=== PATIENT | female | born 1990 | race Caucasian/White ===

== ENCOUNTER 2018-03-03 23:22 | Emergency (ER) | END 2018-03-04 00:05 | disposition home or self-care (01) ==

== ENCOUNTER 2018-10-29 08:27 | Inpatient (IN) | payer SELFPAY ==
[~2018-10-29] VITALS: Ht 160 cm; Wt 46.5 kg
[~2018-10-29 08:27] MED LIST: MUPI22OI2 TOP
[2018-10-29] MEDS ORDERED: ONDANSETRON 4 MG INJ IV STA (08:51)
[2018-10-29] MEDS ORDERED: SOD CHLORIDE 0.9% 1,000 ML IV STA (08:51)
[2018-10-29] MEDS ORDERED: KETOROLAC 30 MG INJ IV STA (08:51)
[2018-10-29] MEDS ORDERED: SOD CHLORIDE 0.9% 100 ML ONE (10:38)
[2018-10-29] MEDS ORDERED: IOHEXOL 300MG/ML 150 ML BTL ONE (10:38)
[2018-10-29] MEDS ORDERED: morphine 4 MG/ML VIAL IV STA (11:36)
[2018-10-29] MEDS ORDERED: ACETAMINOPHEN 325 MG TAB PO PRN ×2 (12:30)
[2018-10-29] MEDS ORDERED: NACL 0.9% 3 ML SYG IV SCH (12:30)
[2018-10-29] MEDS ORDERED: ONDANSETRON 4 MG INJ IV PRN ×2 (12:30)
--- NOTE | 2018-10-29 12:33 | ERD ---
ER Documentation Chief Complaint Chief Complaint Complains of abdominal pain since last night HPI 28-year-old female presenting with abdominal pain that started last night. Pain came on suddenly. It is worse with walking patient has pain with laying down. Denies any vomiting but does feel little dizzy. Denies any vaginal bleeding. No dysuria. No back pain. No fevers. Has not taken medication today for pain but took Advil yesterday. Denies medical problems. NKDA. Surgical history denies. Social history smokes socially but denies drug use. ROS All systems reviewed and are negative except as per history of present illness. Medications Home Meds Active Scripts Mupirocin* (Bactroban*) 2% -22 Gram Oint...g., 1 APPLIC TOP TID, #1 TUB SITE OF APPLICATION: Prov:NATALIE PAYNE PA-C 03/03/18 Allergies Allergies: Coded Allergies: No Known Allergy (Unverified , 03/04/18) PMhx/Soc Medical and Surgical Hx: pt denies Medical Hx, pt denies Surgical Hx Hx Alcohol Use: Yes (OCCASSIONAL) Hx Substance Use: No Hx Tobacco Use: No Smoking Status: Never smoker FmHx Family History: No diabetes, No coronary disease, No other Physical Exam Vitals Vital Signs Date Temp Pulse Resp B/P (MAP) Pulse Ox O2 O2 Flow FiO2 Time Delivery Rate 10/29/18 93 20 126/71 100 08:35 (89) Physical Exam GENERAL: The patient is well-appearing, well-nourished, in no acute distress HEENT: Atraumatic. Conjunctivae are pink. Pupils equal, round, and reactive to light. There is no scleral icterus. Tympanic membranes clear bilaterally. Oropharynx clear. NECK: C-spine is soft and supple. There is no meningismus. There is no cervical lymphadenopathy. CHEST: Clear to auscultation bilaterally. There are no rales, wheezes or rhonchi. HEART: Regular rate and rhythm. No murmurs, clicks, rubs or gallops. ABDOMEN: Normal active bowel sounds. No distention. No organomegaly. Tender to palpation diffusely over the abdomen with no rigidity. Result Diagram: 10/29/1890110/29/18 09 Results 24 hrs Laboratory Tests Test 10/29/18 09:02 10/29/18 09:11 White Blood Count 15.6 10^3/ul Red Blood Count 4.27 10^6/ul Hemoglobin 12.8 g/dl Hematocrit 38.2 % Mean Corpuscular Volume 89.5 fl Mean Corpuscular Hemoglobin 30.0 pg Mean Corpuscular Hemoglobin Concent 33.5 g/dl Red Cell Distribution Width 12.4 % Platelet Count 332 10^3/UL Mean Platelet Volume 9.9 fl Immature Granulocytes % 0.700 % Neutrophils % 84.6 % Lymphocytes % 9.0 % Monocytes % 5.4 % Eosinophils % 0.0 % Basophils % 0.3 % Nucleated Red Blood Cells % 0.0 /100WBC Immature Granulocytes # 0.110 10^3/ul Neutrophils # 13.2 10^3/ul Lymphocytes # 1.4 10^3/ul Monocytes # 0.9 10^3/ul Eosinophils # 0.0 10^3/ul Basophils # 0.1 10^3/ul Nucleated Red Blood Cells # 0.0 10^3/ul Urine Color YELLOW Urine Clarity SLIGHTLY CLOUDY Urine pH 6.0 Urine Specific [place] 1.018 Urine Ketones 1+ mg/dL Urine Nitrite NEGATIVE mg/dL Urine Bilirubin NEGATIVE mg/dL Urine Urobilinogen NEGATIVE mg/dL Urine Leukocyte Esterase NEGATIVE Audrey/ul Urine Microscopic RBC 1 /HPF Urine Microscopic WBC 1 /HPF Urine Squamous Epithelial Cells FEW /HPF Urine Mucus MANY /HPF Urine Hemoglobin NEGATIVE mg/dL Urine Glucose NEGATIVE mg/dL Urine Total Protein NEGATIVE mg/dl Sodium Level 141 mmol/L Potassium Level 4.1 mmol/L Chloride Level 105 mmol/L Carbon Dioxide Level 24 mmol/L Anion Gap 12 Blood Urea Nitrogen 14 mg/dl Creatinine 0.67 mg/dl Est Glomerular Filtrat Rate mL/min > 60 mL/min Glucose Level 118 mg/dl Calcium Level 9.4 mg/dl Total Bilirubin 0.9 mg/dl Direct Bilirubin 0.00 mg/dl Indirect Bilirubin 0.9 mg/dl Aspartate Amino Transf (AST/SGOT) 23 IU/L Alanine Aminotransferase (ALT/SGPT) 21 IU/L Alkaline Phosphatase 84 IU/L Total Protein 7.8 g/dl Albumin 4.7 g/dl Globulin 3.10 g/dl Albumin/Globulin Ratio 1.51 Lipase 66 U/L POC Beta HCG, Qualitative NEGATIVE Current Medications Medications Dose Sig/Dereje Start Time Status Last (Trade) Ordered Route PRN Stop Time Admin Dose Reason Admin Sodium 1,000 ml @ Q1H STAT 10/29/18 DC 10/29/18 Chloride 1,000 mls/hr IV 08:51 10/29/18 09:21 09:50 Ondansetron 4 mg ONCE STAT 10/29/18 DC 10/29/18 HCl (Zofran IV 08:51 10/29/18 09:21 Inj) 08:53 Ketorolac 30 mg ONCE STAT 10/29/18 DC 10/29/18 Tromethamine IV 08:51 10/29/18 09:21 (Toradol) 08:53 IV Flush 10 ml STK-MED 10/29/18 DC 10/29/18 (NS 10 ml) ONCE .ROUTE 10:38 10/29/18 10:47 10:39 Sodium 100 ml @ ud STK-MED 10/29/18 DC 10/29/18 Chloride ONCE .ROUTE 10:38 10/29/18 10:48 10:39 Iohexol 150 ml STK-MED 10/29/18 DC 10/29/18 (Omnipaque ONCE .ROUTE 10:38 10/29/18 10:47 300mg/ ml) 10:39 Morphine 4 mg ONCE STAT 10/29/18 DC 10/29/18 Sulfate IV 11:36 10/29/18 11:49 (morphine) 11:37 Procedures/MDM DIAGNOSTIC IMAGING REPORT Patient: WILVER WILLETT : 1990 Age: 28 Sex: F MR #: [id number] DOS: 10/29/18 0851 Ordering MD: TIFFANIE ZAVALA PA-C Location: [facility] Room/Bed: PROCEDURE: CT ABDOMEN AND PELVIS WITH IV CONTRAST. CLINICAL INDICATION: Abdominal pain TECHNIQUE: CT scan of the abdomen and pelvis with contrast was performed on a multidetector high-resolution CT scanner following the use of IV contrast. 90 cc Omnipaque-300 was administered. Coronal and sagittal reformatted images were ob tained from the axial source images. Images were reviewed on a high-resolution PACS workstation. The total exam CTDI equals 6.6 mGy and the total exam DLP equals 306 mGy-cm. One or more of the following dose reduction techniques were used: Automated exposure control. Adjustment of the mA and/or kV according to patient size. Use of iterative reconstruction technique. DICOM images are available. COMPARISON: Ultrasound pelvis dated October 29, 2018. FINDINGS: CT abdomen: The lung bases are clear. The heart size is within normal limits. There is no significant pericardial effusion. Hepatic morphology is within normal limits. No gross contour deforming masses. The gallbladder is within normal limits. No evidence of intrahepatic or extrahepatic biliary dilatation. The spleen is unremarkable. The pancreas appears to be enlarged. Mild upper abdominal complex ascites is noted. Both adrenal glands are within normal limits. Both kidneys are in anatomic position. No evidence of obstruction or hydronephrosis. The visualized GI tract demonstrates mild thickening of the rivera of the stomach. No obstruction. Stool filled loops large bowel suggestive of constipation. The appendix is within normal limits. The aorta is unremarkable. There is no significant retroperitoneal lymphadenopathy. CT pelvis: Large amount of fluid is noted within pelvis , containing hyperdense material, consistent with hemoperitoneum. There are bilateral cystic adnexa, measuring 3.7 cm on the right and 4.0 cm on the left. Fluid is noted within the endometrial canal. No significant pelvic lymphadenopathy. The normalin limits. IMPRESSION: 1. LARGE AMOUNT OF FREE FLUID WITHIN THE PELVIS, CONTAINING HYPERDENSE MATERIAL, CONSISTENT WITH HEMOPERITONEUM. THERE IS A MILD AMOUNT OF UPPER ABDOMINAL HEMOPERITONEUM WELL. 2. Bilateral cystic adnexa, measuring 3.8 cm on the right and 4.0 cm on the left. Hemoperitoneum may be secondary to a ruptured hemorrhagic cyst in the absence of trauma. 3. The pancreas appears to be mildly enlarged. Although findings can be within normal limits, recommend correlation with amylase and lipase levels to exclude the possibility of pancreatitis. 4. No gross evidence of bowel obstruction. Stool filled loops of large bowel suggestive of constipation. No evidence of free air. DIAGNOSTIC IMAGING REPORT Patient: WILVER WILLETT : 1990 Age: 28 Sex: F MR #: [id number] DOS: 10/29/18 0000 Ordering MD: TIFFANIE ZAVALA PA-C Location: [facility] Room/Bed: PROCEDURE: US Pelvis. CLINICAL INDICATION: pelvic pain TECHNIQUE: Multiple sonographic images of the pelvis were obtained utilizing transabdominal and endovaginal technique. The images were reviewed on a PACS workstation. COMPARISON: None. FINDINGS: The uterus is normal in size with a normal appearance of the myometrium. The uterus measures 8.4 x 4.2 x 4.2 cm. The endometrial stripe is homogeneous in appearance and has the thickness of 14 mm. Normal venous Doppler flow is identified in both ovaries. The right ovary measures 5.1 x 4.8 x 4.2 cm. There is a 3.5 cm simple cyst. The left ovary measures 5.5 x 4.5 x 4.7 cm. There is a 4.6 cm simple cyst. There is adjacent free fluid in the left adnexa. No free fluid is present within the pelvis. There is a moderate amount of free fluid in the pelvis. RPTAT: AA IMPRESSION: Enlarged ovaries with bilateral simple cysts. Moderate amount of free fluid in the pelvis and left adnexa. MDM: 28-year-old female presenting with abdominal pain since last night. Patient has findings consistent with hemoperitoneum and patient will be admitted for observation. Dr. Mejia will admit and consult. Patient will have serial CBCs drawn to ensure that hemoglobin remained stable. If there is complication. Patient will have a laparoscopy If symptoms persist or worsen. Patient will be admitted and is stable at the time of admission. ELHAM ZAVALA PA-C Oct 29, 2018 12:33
--- NOTE | 2018-10-29 12:37 | QN ---
Documentation Comment [place] [employer] Note and consults Thank you for consulting with nuclear licensing engineer team, 28 yo female complains of sudden onset Of generalized abdominal pain since last night with no other associated symptoms Hb 12 [place] 90 HCG neg Ultrasound and CT reviewed Moderate FF in abdomen and pelvis,Small bilateral ovarian cysts PMH Denies PSH Denies Allegies NKDA PE VS stable Gen NAD Abd soft Generalized tenderness more pronounced on the lower side Genitalia No blood at perineum Dx of possible ruptured ovarian cyst discussed with the patient ,A diagnostic laparoscopy vs Monitoring and Observation discussed with the patient patient understands the risks and benefits of each.She declines the surgery at this time and requests the observation Hb every 4-6 hrs If pain subsides or Hb is stable,she can be discharged with precautions If Hb significantly drops ,she will be taken to OR She needs to stay NPO Thanks CAMDEN CELAYA M.D. Oct 29, 2018 12:37
[2018-10-29] MEDS ORDERED: morphine 2 MG INJ IV PRN (13:30)
[2018-10-29 15:15] VITALS: BP 119/66; PULSE 70; RESP 18
[2018-10-29] MEDS: DEXTROSE 5%-0.45% NACL 1,000 ML IV SCH (15:46)
[2018-10-29 15:47] VITALS: Ht 160 cm; Wt 46.5 kg
--- NOTE | 2018-10-29 17:38 | HP ---
Date/Time of Note Date/Time of Note DATE: 10/29/18 TIME: 17:27 Assessment/Plan VTE Prophylaxis SCD applied (from Nsg): Yes Pharmacological prophylaxis: NA/contraindicated Pharm contraindication: bleeding Lines/Catheters IV Catheter Type (from Nrsg): Peripheral IV Urinary Cath still in place: No Assessment/Plan Assessment/Plan 1. Acute rupture ovarian cyst with hemoperitoneum - Oil Lease Operator consultation appreciated and discussed plan of care with patient. Would like conservative treatment at this time but if hgb drops significantly or experiencing worsening pain, will need surgical intervention. Will need to keep NPO for now and continue on IVF - Pain control - monitor H/H - CT results noted 2. Leukocytosis - most likely reactive 3. Diet - keep NPO for now in case surgical intervention needed 4. DVT ppx - SCD 5. Disposition - Admit to Med/Surg for monitoring of H/H and abdominal pain Result Diagram: 10/29/18 1625 10/29/18 0902 Results 24hrs Laboratory Tests Test 10/29/18 09:02 10/29/18 09:11 10/29/18 16:25 White Blood Count 15.6 H Red Blood Count 4.27 Hemoglobin 12.8 9.5 #L Hematocrit 38.2 28.3 #L Mean Corpuscular Volume 89.5 Mean Corpuscular Hemoglobin 30.0 Mean Corpuscular 33.5 Hemoglobin Concent Red Cell Distribution Width 12.4 Platelet Count 332 Mean Platelet Volume 9.9 Immature Granulocytes % 0.700 H Neutrophils % 84.6 H Lymphocytes % 9.0 L Monocytes % 5.4 Eosinophils % 0.0 Basophils % 0.3 Nucleated Red Blood Cells % 0.0 Immature Granulocytes # 0.110 H Neutrophils # 13.2 H Lymphocytes # 1.4 Monocytes # 0.9 Eosinophils # 0.0 Basophils # 0.1 Nucleated Red Blood Cells # 0.0 Urine Color YELLOW Urine Clarity SLIGHTLY CLOUDY A Urine pH 6.0 Urine Specific [place] 1.018 Urine Ketones 1+ H Urine Nitrite NEGATIVE Urine Bilirubin NEGATIVE Urine Urobilinogen NEGATIVE Urine Leukocyte Esterase NEGATIVE Urine Microscopic RBC 1 Urine Microscopic WBC 1 Urine Squamous Epithelial Cells FEW Urine Mucus MANY A Urine Hemoglobin NEGATIVE Urine Glucose NEGATIVE Urine Total Protein NEGATIVE Sodium Level 141 Potassium Level 4.1 Chloride Level 105 Carbon Dioxide Level 24 Anion Gap 12 Blood Urea Nitrogen 14 Creatinine 0.67 Est Glomerular Filtrat > 60 Rate mL/min Glucose Level 118 Calcium Level 9.4 Total Bilirubin 0.9 Direct Bilirubin 0.00 Indirect Bilirubin 0.9 Aspartate Amino 23 Transf (AST/SGOT) Alanine 21 Aminotransferase (ALT/SGPT) Alkaline Phosphatase 84 Total Protein 7.8 Albumin 4.7 Globulin 3.10 Albumin/Globulin Ratio 1.51 Lipase 66 POC Beta HCG, Qualitative NEGATIVE HPI/ROS Admit Date/Time Admit Date/Time Oct 29, 2018 at 12:29 Hx of Present Illness 28 yo F with no significant PMH presents for worsening abdominal pain since last night. Patient states she had a sudden onset of severe right pubic pain with associated chills. Patient denies any nausea, vomiting, chest pain, shortness of breath, vaginal bleeding, constipation, or diarrhea. She admits to stopping her BC recently. No previous history of pelvic pain. In ED CT scan abd/pelvis revealed hemoperitoneum consistent with ovarian cyst rupture with presences of cysts bilaterally. She was evaluated by Oil Lease Operator and opted for conservative management at this time. ROS All 12 systems reviewed and pertinent positives as per HPI. All others n egative. Constitutional: chills; No nausea Eyes: No discharge ENT: No congestion Respiratory: No cough, No shortness of breath, No sputum Cardiovascular: No chest pain, No edema, No lightheadedness, No palpitations Gastrointestinal: No pain, No constipation, No diarrhea, No nausea Genitourinary: other (right pelvic pain); No bleeding, No discharge, No flank pain Musculoskeletal: No restricted range of motion Skin: No bruising, No laceration, No rash Neurologic: No confusion, No focal-weakness, No syncope Endocrine: no complaints Lymphatic: no complaints Psychological: nl mood/affect Immunologic: no complaints PMH/Family/Social Past Medical History Medical History: no pertinent history Medications Current Medications Dextrose/Sodium Chloride 1,000 ml @ 75 mls/hr [id number] IV Last administered on 10/29/18at 15:46; Admin Dose 75 MLS/HR; Start 10/29/18 at 12:29 IV Flush (NS 3 ml) 3 ml PER PROTOCOL IV ; Start 10/29/18 at 12:30 Ondansetron HCl (Zofran Inj) 4 mg Q6H PRN IV NAUSEA/VOMITING; Start 10/29/18 at 12:30 Acetaminophen (Tylenol Tab) 650 mg Q6H PRN PO .PAIN 1-3 OR TEMP; Start 10/29/18 at 12:30 Acetaminophen/ Hydrocodone Bitart ([place] (5/325)) 1 tab Q6H PRN PO .MOD PAIN 4- 6; Start 10/29/18 at 12:30 Famotidine (Pepcid Iv) 20 mg Q12 IV ; Start 10/29/18 at 21:00 Morphine Sulfate (morphine) 2 mg Q4H PRN IV SEVERE PAIN LEVEL 7-10; Start 10/29/18 at 13:30 Coded Allergies: No Known Allergy (Unverified , 03/04/18) Past Surgical History Past Surgical Hx: no surgical history Family History Significant Family History: no pertinent family hx Social History Alcohol Use: none Smoking Status: Never smoker Drug Use: none Exam/Review of Systems Vital Signs Vitals Vital Signs Date Temp Pulse Resp B/P (MAP) Pulse Ox O2 O2 Flow FiO2 Time Delivery Rate 10/29/18 98.1 70 18 119/66 100 Room Air 15:15 (83) Exam Exam General: Patient is laying in bed and answers questions appropriately HEENT: NC/AT. EOMI, pupils reactive to light Neck: Supple, nontender, midline Lungs: clear to auscultation bilaterally. no wheezing or rhonchi CVS: S1, S2, regular rate and rhythm, no obvious murmurs Gregg: soft, tender left pubic area, nondistended, no guarding, bowel sounds heard. Neurological: Moves all extremities spontaneously Skin: No new skin lesions Additional Comments No home medications Imaging: PROCEDURE: CT ABDOMEN AND PELVIS WITH IV CONTRAST. CLINICAL INDICATION: Abdominal pain TECHNIQUE: CT scan of the abdomen and pelvis with contrast was performed on a multidetector high-resolution CT scanner following the use of IV contrast. 90 cc Omnipaque-300 was administered. Coronal and sagittal reformatted images were obtained from the axial source images. Images were reviewed on a high-resolution PACS workstation. The total exam CTDI equals 6.6 mGy and the total exam DLP equals 306 mGy-cm. One or more of the following dose reduction techniques were used: Automated exposure control. Adjustment of the mA and/or kV according to patient size. Use of iterative reconstruction technique. DICOM images are available. COMPARISON: Ultrasound pelvis dated October 29, 2018. FINDINGS: CT abdomen: The lung bases are clear. The heart size is within normal limits. There is no significant pericardial effusion. Hepatic morphology is within normal limits. No gross contour deforming masses. The gallbladder is within normal limits. No evidence of intrahepatic or extrahepatic biliary dilatation. The spleen is unremarkable. The pancreas appears to be enlarged. Mild upper abdominal complex ascites is noted. Both adrenal glands are within normal limits. Both kidneys are in anatomic position. No evidence of obstruction or hydron ephrosis. The visualized GI tract demonstrates mild thickening of the rivera of the stomach. No obstruction. Stool filled loops large bowel suggestive of constipation. The appendix is within normal limits. The aorta is unremarkable. There is no significant retroperitoneal lymphadenopathy. CT pelvis: Large amount of fluid is noted within pelvis , containing hyperdense material, consistent with hemoperitoneum. There are bilateral cystic adnexa, measuring 3.7 cm on the right and 4.0 cm on the left. Fluid is noted within the endometrial canal. No significant pelvic lymphadenopathy. The normalin limits. IMPRESSION: 1. LARGE AMOUNT OF FREE FLUID WITHIN THE PELVIS, CONTAINING HYPERDENSE MATERIAL, CONSISTENT WITH HEMOPERITONEUM. THERE IS A MILD AMOUNT OF UPPER ABDOMINAL HEMOPERITONEUM WELL. 2. Bilateral cystic adnexa, measuring 3.8 cm on the right and 4.0 cm on the left. Hemoperitoneum may be secondary to a ruptured hemorrhagic cyst in the absence of trauma. 3. The pancreas appears to be mildly enlarged. Although findings can be within normal limits, recommend correlation with amylase and lipase levels to exclude the possibility of pancreatitis. 4. No gross evidence of bowel obstruction. Stool filled loops of large bowel suggestive of constipation. No evidence of free air. RPTAT: AAPP Physician Marina Date Time Electronically viewed and signed by Physician Marina on 10/29/2018 11:28 PROCEDURE: US Pelvis. CLINICAL INDICATION: pelvic pain TECHNIQUE: Multiple sonographic images of the pelvis were obtained utilizing transabdominal and endovaginal technique. The images were reviewed on a PACS workstation. COMPARISON: None. FINDINGS: The uterus is normal in size with a normal appearance of the myometrium. The uterus measures 8.4 x 4.2 x 4.2 cm. The endometrial stripe is homogeneous in appearance and has the thickness of 14 mm. Normal venous Doppler flow is identified in both ovaries. The right ovary measures 5.1 x 4.8 x 4.2 cm. There is a 3.5 cm simple cyst. The left ovary measures 5.5 x 4.5 x 4.7 cm. There is a 4.6 cm simple cyst. There is adjacent free fluid in the left adnexa. No free fluid is present within the pelvis. There is a moderate amount of free fluid in the pelvis. RPTAT: AA IMPRESSION: Enlarged ovaries with bilateral simple cysts. Moderate amount of free fluid in the pelvis and left adnexa. .Dany Estrada MD, MD Date Time Electronically viewed and signed by .Dany Estrada MD, on 10/29/2018 10:29 SANDHYA MAHARAJ MD Oct 29, 2018 17:38
--- NOTE | 2018-10-29 19:00 | QN ---
Documentation Comment The Hb is checked 9.5 VS stable As this is the end of my call,patidayannayt is signed out to [employer] laborist , and she will evaluate and follow up on the patient CAMDEN CELAYA M.D. Oct 29, 2018 19:00
[2018-10-29] MEDS: HYDROCODONE/APAP (5/325) TAB PO PRN (19:33)
[2018-10-29 20:00] VITALS: BP 118/55; PULSE 67
[2018-10-29] MEDS: FAMOTIDINE 20 MG INJ IV SCH (21:53)
[2018-10-30] VITALS (17 sets, daily range): BP systolic 96–123; BP diastolic 44–70; PULSE 64–106; RESP 12–20
[2018-10-30] MEDS: DEXTROSE 5%-0.45% NACL 1,000 ML IV SCH ×2 (02:05→13:34)
--- NOTE | 2018-10-30 07:30 | QN ---
Documentation Comment Just got signed out from ,agricultural production engineer laborist for last night that Hb has dropped to 7.6 Patient is seen at the bedside She is discussed for operative laparoscopy ,possible bilateral ovarian cystect martha,possible salpingoophorectomy.possible laparotomy Risks discussed 2 units PRBC are ordered for transfusion Questions answered OR charged nurse informed about the emergency CAMDEN CELAYA M.D. Oct 30, 2018 07:30
[2018-10-30] MEDS: FAMOTIDINE 20 MG INJ IV SCH ×2 (09:00→20:29)
[2018-10-30] MEDS ORDERED: INFLUENZA VIRUS VACCINE 0.5 ML (DISPENSING) IM* ONE (09:00)
--- NOTE | 2018-10-30 09:18 | PN ---
Date/Time of Note Date/Time of Note DATE: 10/30/18 TIME: 09:18 Assessment/Plan VTE Prophylaxis Risk score (from Ns)>0 risk: 1 SCD applied (from Ns): Yes Pharmacological prophylaxis: NA/contraindicated Pharm contraindication: bleeding Lines/Catheters IV Catheter Type (from Nrsg): Peripheral IV Urinary Cath still in place: No Assessment/Plan Assessment/Plan 1. Acute rupture ovarian cyst with hemoperitoneum s/p Lap b/l ovarian cystectomy and washout - Patient taken to OR this am after drop in hgb level. - Tolerated procedure well and hgb 10.1 follow 2 PRBC - Hand Icer consultation appreciated and will continue monitoring H/H - Pain control - CT results noted 2. Leukocytosis- resolved - most likely reactive 3. Disposition - Continue monitoring H/H and if remains stable and cleared by cylinder block hole reliner will d/c tomorrow Result Diagram: 10/30/18 0555 10/29/18 0902 Results 24hrs Laboratory Tests Test 10/29/18 16:25 10/29/18 19:22 10/29/18 21:56 10/30/18 05:55 Hemoglobin 9.5 #L 8.7 L 8.4 L 7.6 L Hematocrit 28.3 #L 26.2 L 24.9 L 22.4 L White Blood Count 12.0 #H Red Blood Count 2.90 #L Mean Corpuscular Volume 90.3 Mean Corpuscular 30.0 Hemoglobin Mean Corpuscular 33.2 Hemoglobin Concent Red Cell Distribution 12.5 Width Platelet Count 236 # Mean Platelet Volume 10.1 Immature Granulocytes % 0.500 H Neutrophils % 71.0 Lymphocytes % 19.8 Monocytes % 8.3 Eosinophils % 0.1 Basophils % 0.3 Nucleated Red Blood 0.0 Cells % Immature Granulocytes # 0.060 H Neutrophils # 8.5 H Lymphocytes # 2.4 Monocytes # 1.0 H Eosinophils # 0.0 Basophils # 0.0 Nucleated Red Blood 0.0 Cells # Subjective 24 Hr Interval Summary Free Text/Dictation Patient taken to OR this am after significant drop in hemoglobin this am. Tolerated procedure well and just complaining of soreness in abdominal area. Exam/Review of Systems Exam Vitals Vital Signs Date Temp Pulse Resp B/P (MAP) Pulse Ox O2 O2 Flow FiO2 Time Delivery Rate 10/30/18 98.5 68 18 101/52 100 08:13 (68) 10/29/18 Room Air 15:15 Intake and Output 10/29/18 10/29/18 10/30/18 1515:00 23:00 07:00 IntakeIntake Total 1100 ml 200 ml 800 ml BalanceBalance 1100 ml 200 ml 800 ml Exam General: Patient is laying in bed and answers questions appropriately Neck: Supple Lungs: clear to auscultation bilaterally. no wheezing or rhonchi CVS: S1, S2, regular rate and rhythm, no obvious murmurs Gregg: soft, mildly tender lower abdominal area, nondistended, no guarding, bowel sounds heard. Neurological: Moves all extremities spontaneously Skin: No new skin lesions, surgical incisions sites CDI Results Results 24hrs Laboratory Tests Test 10/29/18 16:25 10/29/18 19:22 10/29/18 21:56 10/30/18 05:55 Hemoglobin 9.5 #L 8.7 L 8.4 L 7.6 L Hematocrit 28.3 #L 26.2 L 24.9 L 22.4 L White Blood Count 12.0 #H Red Blood Count 2.90 #L Mean Corpuscular Volume 90.3 Mean Corpuscular 30.0 Hemoglobin Mean Corpuscular 33.2 Hemoglobin Concent Red Cell Distribution 12.5 Width Platelet Count 236 # Mean Platelet Volume 10.1 Immature Granulocytes % 0.500 H Neutrophils % 71.0 Lymphocytes % 19.8 Monocytes % 8.3 Eosinophils % 0.1 Basophils % 0.3 Nucleated Red Blood 0.0 Cells % Immature Granulocytes # 0.060 H Neutrophils # 8.5 H Lymphocytes # 2.4 Monocytes # 1.0 H Eosinophils # 0.0 Basophils # 0.0 Nucleated Red Blood 0.0 Cells # Medications Medication Current Medications Dextrose/Sodium Chloride 1,000 ml @ 75 mls/hr [id number] IV Last administered on 10/30/18at 02:05; Admin Dose 75 MLS/HR; Start 10/29/18 at 12:29 IV Flush (NS 3 ml) 3 ml PER PROTOCOL IV ; Start 10/29/18 at 12:30 Ondansetron HCl (Zofran Inj) 4 mg Q6H PRN IV NAUSEA/VOMITING; Start 10/29/18 at 12:30 Acetaminophen (Tylenol Tab) 650 mg Q6H PRN PO .PAIN 1-3 OR TEMP; Start 10/29/18 at 12:30 Acetaminophen/ Hydrocodone Bitart ([place] (5/325)) 1 tab Q6H PRN PO .MOD PAIN 4- 6 Last administered on 10/29/18at 19:33; Admin Dose 1 TAB; Start 10/29/18 at 12:30 Famotidine (Pepcid Iv) 20 mg Q12 IV Last administered on 10/29/18 21:53; Admin Dose 20 MG; Start 10/29/18 at 21:00 Morphine Sulfate (morphine) 2 mg Q4H PRN IV SEVERE PAIN LEVEL 7-10 Last administered on 10/29/18 17:56; Admin Dose 2 MG; Start 10/29/18 at 13:30 SANDHYA MAHARAJ MD Oct 30, 2018 09:18
[2018-10-30] MEDS ORDERED: ROPIVACAINE 0.5 % 30 ML VIAL ONE (10:26)
--- NOTE | 2018-10-30 10:26 | PREAC ---
Date/Time of Note Date/Time of Note DATE: 10/30/18 TIME: 10:24 Anesthesia Eval and Record Evaluation Time Pre-Procedure Interview DATE: 10/30/18 TIME: 10:24 Age 28 Sex female NPO: 8 hrs Preoperative diagnosis ruptured Ovarian cyst Planned procedure Laparoscopy possible cystectomy Past Medical History Past Medical History: None Surgery & Anesthesia Issues No known issue Meds Anticoagulation: No Beta Gee within 24 hr: No Reason Beta Gee not given: Pt. not on B-Gee Active Scripts Mupirocin* (Bactroban*) 2% -22 Gram Oint...g., 1 APPLIC TOP TID, #1 TUB SITE OF APPLICATION: Prov:NATALIE PAYNE PA-C 03/03/18 Current Medications Dextrose/Sodium Chloride 1,000 ml @ 75 mls/hr [id number] IV Last administered on 10/30/18at 02:05; Admin Dose 75 MLS/HR; Start 10/29/18 at 12:29 IV Flush (NS 3 ml) 3 ml PER PROTOCOL IV ; Start 10/29/18 at 12:30 Ondansetron HCl (Zofran Inj) 4 mg Q6H PRN IV NAUSEA/VOMITING; Start 10/29/18 at 12:30 Acetaminophen (Tylenol Tab) 650 mg Q6H PRN PO .PAIN 1-3 OR TEMP; Start 10/29/18 at 12:30 Acetaminophen/ Hydrocodone Bitart ([place] (5/325)) 1 tab Q6H PRN PO .MOD PAIN 4- 6 Last administered on 10/29/18at 19:33; Admin Dose 1 TAB; Start 10/29/18 at 12:30 Famotidine (Pepcid Iv) 20 mg Q12 IV Last administered on 10/29/18at 21:53; Admin Dose 20 MG; Start 10/29/18 at 21:00 Morphine Sulfate (morphine) 2 mg Q4H PRN IV SEVERE PAIN LEVEL 7-10 Last administered on 10/29/18at 17:56; Admin Dose 2 MG; Start 10/29/18 at 13:30 Meds reviewed: Yes Allergies Coded Allergies: No Known Allergy (Unverified , 03/04/18) Allergies Reviewed: Yes Labs/Studies Labs Reviewed: Reviewed by anesthesiologist Result Diagram: 10/30/18 0555 10/29/18 0902 Laboratory Tests 10/29/18:22 10/30/18 05:55 Blood Bank Test 10/30/18 05:53 Antibody Screen NEGATIVE Blood Product Summary Counts Blood Type O POSITIVE Crossmatch Red Blood Cells test: Negative Pre-procedure Exam Last vitals Vital Signs Date Temp Pulse Resp B/P (MAP) Pulse Ox O2 O2 Flow FiO2 Time Delivery Rate 10/30/18 98.5 68 18 101/52 100 08:13 (68) 10/29/18 Room Air 15:15 Airway: Adequate mouth opening, Adequate thyromental dist Mallampati: Mallampati I Teeth: Normal (broken r lower molar) Lung: Normal Heart: Normal ASA Physical Status ASA physical status: 1 Emergency: None Planned Anesthetic General/MAC: ETT Nerve block: TAP (bilateral) Pre-operative Attestations Prior to commencing anesthesia and surgery, the patient was re-evaluated, there was verification of: *The patient's identity *The results of appropriate recent lab work and preoperative vital signs *The above evaluation not changing prior to induction *Anesthetic plan, risk benefits, alternative and complications discussed with patient/family; questions answered; patient/family understands, accepts and wishes to proceed. JAG UMAÑA Oct 30, 2018 10:26
[2018-10-30] MEDS ORDERED: MIDAZOLAM 1 MG/ML 2 ML INJ ONE (10:27)
[2018-10-30] MEDS ORDERED: FENTAnyl 50 MCG/ML VIAL ONE (10:27)
[2018-10-30] MEDS ORDERED: MEPERIDINE 25 MG INJ IV PRN (12:00)
[2018-10-30] MEDS ORDERED: OXYCODONE/ACETAMINOPHEN (5/325) TAB PO PRN ×2 (12:00→12:30)
[2018-10-30] MEDS ORDERED: DIPHENHYDRAMINE 50 MG INJ IV PRN (12:00)
[2018-10-30] MEDS ORDERED: METOCLOPRAMIDE 10 MG INJ IV PRN (12:00)
[2018-10-30] MEDS ORDERED: EPHEDrine SULFATE 50 MG/5 ML SYG IV PRN (12:00)
[2018-10-30] MEDS ORDERED: HYDROmorphONE 1 MG/5 ML IV SYRINGE IV PRN ×3 (12:00)
[2018-10-30] MEDS ORDERED: ONDANSETRON 4 MG INJ IV PRN (12:00)
[2018-10-30] MEDS ORDERED: FENTAnyl 50 MCG/ML VIAL IV PRN ×3 (12:00)
--- NOTE | 2018-10-30 12:09 | OPPN ---
Date/Time of Note Date/Time of Note DATE: 10/30/18 TIME: 12:04 Operative Report Preoperative Diagnosis Ruptured ovarian cyst and hemoperitoneum Postoperative Diagnosis same ,one liter of hemoperitoneum,Bilateral ovarian cyst Operation/Procedure Performed Operative laparoscopy Bilateral ovarian cystectomy .Irrigation of abdominal and pelvic cavity Surgeon see signature line emergency medicine physician assistant none Anesthesia: general Estimated blood loss: minimal Transfusion Required none Specimen Bilateral ovarian cyst rivera Grafts/Implants none Complications none CAMDEN CELAYA M.D. Oct 30, 2018 12:09
--- NOTE | 2018-10-30 12:17 | PAC ---
Date/Time of Note Date/Time of Note DATE: 10/30/18 TIME: 12:16 Post-Anesthesia Notes Post-Anesthesia Note Last documented vital signs Vital Signs Date Temp Pulse Resp B/P (MAP) Pulse Ox O2 O2 Flow FiO2 Time Delivery Rate 10/30/18 98.5 68 18 101/52 100 Face mask 8 L 12:13 (68) 10/29/18 Room Air 15:15 Activity: WNL Respiratory function: WNL Cardiovascular function: WNL Mental status: Baseline Pain reasonably controlled: Yes Hydration appropriate: Yes Nausea/Vomiting absent: Yes LIDA RODRIGUEZ MD Oct 30, 2018 12:17
[2018-10-30] MEDS: HYDROCODONE/APAP (5/325) TAB PO PRN (16:51)
[2018-10-31 02:00] VITALS: BP 107/59; PULSE 66; RESP 18
[2018-10-31] MEDS: DEXTROSE 5%-0.45% NACL 1,000 ML IV SCH (02:25)
[2018-10-31 07:56] VITALS: BP 106/55; PULSE 63; RESP 18
--- NOTE | 2018-10-31 09:09 | PN ---
Date/Time of Note Date/Time of Note DATE: 10/31/18 TIME: 09:09 Assessment/Plan VTE Prophylaxis Risk score (from Ns)>0 risk: 2 SCD applied (from Ns): Yes Pharmacological prophylaxis: NA/contraindicated Pharm contraindication: low risk/ambulating Lines/C[facility]ters [facility] IV Urinary Cath still in place: No Assessment/Plan Assessment/Plan 1. Acute rupture ovarian cyst with hemoperitoneum s/p Lap b/l ovarian cystecto my - Patient tolerated OR procedure well and with minimal pain - H/H remains stable - Crime Analyst consultation appreciated - Pain control - CT results noted 2. Leukocytosis- resolved - most likely reactive 3. Disposition - Medically stable for discharge home Result Diagram: 10/31/18 0520 10/29/18 0902 Results 24hrs Laboratory Tests Test 10/30/18 12:29 10/30/18 16:28 10/31/18 05:20 White Blood Count 9.6 12.4 #H 10.9 H Red Blood Count 3.40 L 3.64 L 3.03 L Hemoglobin 10.1 #L 10.8 L 9.0 L Hematocrit 31.1 #L 32.6 L 27.1 L Mean Corpuscular Volume 91.5 89.6 89.4 Mean Corpuscular Hemoglobin 29.7 29.7 29.7 Mean Corpuscular Hemoglobin Concent 32.5 33.1 33.2 Red Cell Distribution Width 13.2 12.9 13.1 Platelet Count 180 # 186 163 Mean Platelet Volume 9.9 10.0 10.0 Immature Granulocytes % 0.600 H 0.600 H 0.500 H Neutrophils % 66.0 72.8 Lymphocytes % 21.5 15.7 Monocytes % 11.3 H 10.6 Eosinophils % 0.3 0.2 Basophils % 0.3 0.2 Nucleated Red Blood Cells % 0.0 0.0 0.0 Immature Granulocytes # 0.060 H 0.070 H 0.050 H Neutrophils # 6.3 8.0 H Lymphocytes # 2.1 1.7 Monocytes # 1.1 H 1.2 H Eosinophils # 0.0 0.0 Basophils # 0.0 0.0 Nucleated Red Blood Cells # 0.0 0.0 Prothrombin Time 16.0 H Prothrombin Time Ratio 1.3 INR International Normalized Ratio 1.27 Activated Partial Thromboplast Time 34.4 Segmented Neutrophils % (Manual) 96 H Lymphocytes % (Manual) 1 L Monocytes % (Manual) 3 Lymphocytes (Manual) 0.1 L Monocytes # (Manual) 0.3 Platelet Estimate NORMAL Anisocytosis 1+ Macrocytosis 1+ Subjective 24 Hr Interval Summary Free Text/Dictation Patient states shes feeling better and still with mild pain but no bleeding appreciated. No acute overnight events. Exam/Review of Systems Exam Vitals Vital Signs Date Temp Pulse Resp B/P (MAP) Pulse Ox O2 O2 Flow FiO2 Time Delivery Rate 10/31/18 98.6 63 18 106/55 100 07:56 (72) 10/30/18 Room Air 13:12 10/30/18 8.0 12:32 Intake and Output 10/30/18 10/30/18 10/31/18 1515:00 23:00 07:00 IntakeIntake Total 2700 ml 950 ml 700 ml OutputOutput Total 1080 ml BalanceBalance 1620 ml 950 ml 700 ml Exam General: Patient is laying in bed and answers questions appropriately Neck: Supple Lungs: clear to auscultation bilaterally. no wheezing or rhonchi CVS: S1, S2, regular rate and rhythm, no obvious murmurs Gregg: soft, nontender, nondistended, no guarding, bowel sounds heard. Neurological: Moves all extremities spontaneously Skin: No new skin lesions, surgical incisions sites CDI Results Results 24hrs Laboratory Tests Test 10/30/18 12:29 10/30/18 16:28 10/31/18 05:20 White Blood Count 9.6 12.4 #H 10.9 H Red Blood Count 3.40 L 3.64 L 3.03 L Hemoglobin 10.1 #L 10.8 L 9.0 L Hematocrit 31.1 #L 32.6 L 27.1 L Mean Corpuscular Volume 91.5 89.6 89.4 Mean Corpuscular Hemoglobin 29.7 29.7 29.7 Mean Corpuscular Hemoglobin Concent 32.5 33.1 33.2 Red Cell Distribution Width 13.2 12.9 13.1 Platelet Count 180 # 186 163 Mean Platelet Volume 9.9 10.0 10.0 Immature Granulocytes % 0.600 H 0.600 H 0.500 H Neutrophils % 66.0 72.8 Lymphocytes % 21.5 15.7 Monocytes % 11.3 H 10.6 Eosinophils % 0.3 0.2 Basophils % 0.3 0.2 Nucleated Red Blood Cells % 0.0 0.0 0.0 Immature Granulocytes # 0.060 H 0.070 H 0.050 H Neutrophils # 6.3 8.0 H Lymphocytes # 2.1 1.7 Monocytes # 1.1 H 1.2 H Eosinophils # 0.0 0.0 Basophils # 0.0 0.0 Nucleated Red Blood Cells # 0.0 0.0 Prothrombin Time 16.0 H Prothrombin Time Ratio 1.3 INR International Normalized Ratio 1.27 Activated Partial Thromboplast Time 34.4 Segmented Neutrophils % (Manual) 96 H Lymphocytes % (Manual) 1 L Monocytes % (Manual) 3 Lymphocytes (Manual) 0.1 L Monocytes # (Manual) 0.3 Platelet Estimate NORMAL Anisocytosis 1+ Macrocytosis 1+ Medications Medication Current Medications Dextrose/Sodium Chloride 1,000 ml @ 75 mls/hr [id number] IV Last administered on 10/31/18 02:25; Admin Dose 75 MLS/HR; Start 10/29/18 at 12:29 IV Flush (NS 3 ml) 3 ml PER PROTOCOL IV ; Start 10/29/18 at 12:30 Ondansetron HCl (Zofran Inj) 4 mg Q6H PRN IV NAUSEA/VOMITING; Start 10/29/18 at 12:30 Acetaminophen (Tylenol Tab) 650 mg Q6H PRN PO .PAIN 1-3 OR TEMP; Start 10/29/18 at 12:30 Acetaminophen/ Hydrocodone Bitart ([place] (5/325)) 1 tab Q6H PRN PO .MOD PAIN 4- 6 Last administered on 10/30/18at 16:51; Admin Dose 1 TAB; Start 10/29/18 at 12:30 Famotidine (Pepcid Iv) 20 mg Q12 IV Last administered on 10/30/18 20:29; Admin Dose 20 MG; Start 10/29/18 at 21:00 Morphine Sulfate (morphine) 2 mg Q4H PRN IV SEVERE PAIN LEVEL 7-10 Last administered on 10/29/18 17:56; Admin Dose 2 MG; Start 10/29/18 at 13:30 Oxycodone/ Acetaminophen (Percocet (5/ 325)) 2 tab Q4H PRN PO MODERATE PAIN LEVEL 4-6; Start 10/30/18 at 12:30 SANDHYA MAHARAJ MD Oct 31, 2018 09:09
[2018-10-31] MEDS: FAMOTIDINE 20 MG INJ IV SCH (09:14)
[2018-10-31] MEDS ORDERED: HYDR-3601 PO (11:32)
--- NOTE | 2018-10-31 11:34 | PDOCDIS ---
Discharge Instructions DIAGNOSIS Discharge Diagnosis 1. Acute rupture ovarian cyst with hemoperitoneum s/p Lap b/l ovarian cystectomy CONDITION [id number] Patient Condition: [id number] Stable HOME CARE INSTRUCTIONS: [id number] Diet Instructions: [id number] Regular ACTIVITY: [id number] Activity Restrictions: [id number] No Restrictions FOLLOW UP/APPOINTMENTS Follow-up Plan 1. Follow up with your primary care physician in 1-2 weeks 2. Follow with sign erector and repairer for scheduled pap smears 3. Take pain medications as needed. Keep well hydrated and increase fiber in your diet to prevent constipation 4. If experience any concerning symptoms, go to your nearest emergency department SANDHYA MAHARAJ MD Oct 31, 2018 11:34
--- NOTE | 2018-10-31 17:34 | DS ---
Date/Time of Note Date/Time of Note DATE: 10/31/18 TIME: 17:30 Discharge Summary Admission/Discharge Info Admit Date/Time Oct 29, 2018 at 12:29 Discharge Date/Time Oct 31, 2018 at 13:00 Discharge Diagnosis 1. Acute rupture ovarian cyst with hemoperitoneum s/p Lap b/l ovarian cystectomy Patient Condition: Stable Consults Processing Lead- Dr. Mejia Procedures PROCEDURE: CT ABDOMEN AND PELVIS WITH IV CONTRAST. CLINICAL INDICATION: Abdominal pain TECHNIQUE: CT scan of the abdomen and pelvis with contrast was performed on a multidetector high-resolution CT scanner following the use of IV contrast. 90 cc Omnipaque-300 was administered. Coronal and sagittal reformatted images were obtained from the axial source images. Images were reviewed on a high-resolution PACS workstation. The total exam CTDI equals 6.6 mGy and the total exam DLP equals 306 mGy-cm. One or more of the following dose reduction techniques were used: Automated exposure control. Adjustment of the mA and/or kV according to patient size. Use of iterative reconstruction technique. DICOM images are available. COMPARISON: Ultrasound pelvis dated October 29, 2018. FINDINGS: CT abdomen: The lung bases are clear. The heart size is within normal limits. There is no significant pericardial effusion. Hepatic morphology is within normal limits. No gross contour deforming masses. The gallbladder is within normal limits. No evidence of intrahepatic or extrahepatic biliary dilatation. The spleen is unremarkable. The pancreas appears to be enlarged. Mild upper abdominal complex ascites is noted. Both adrenal glands are within normal limits. Both kidneys are in anatomic position. No evidence of obstruction or h ydronephrosis. The visualized GI tract demonstrates mild thickening of the rivera of the stomach. No obstruction. Stool filled loops large bowel suggestive of constipation. The appendix is within normal limits. The aorta is unremarkable. There is no significant retroperitoneal lymphadenopathy. CT pelvis: Large amount of fluid is noted within pelvis , containing hyperdense material, consistent with hemoperitoneum. There are bilateral cystic adnexa, measuring 3.7 cm on the right and 4.0 cm on the left. Fluid is noted within the endometrial canal. No significant pelvic lymphadenopathy. The normalin limits. IMPRESSION: 1. LARGE AMOUNT OF FREE FLUID WITHIN THE PELVIS, CONTAINING HYPERDENSE MATERIAL, CONSISTENT WITH HEMOPERITONEUM. THERE IS A MILD AMOUNT OF UPPER ABDOMINAL HEMOPERITONEUM WELL. 2. Bilateral cystic adnexa, measuring 3.8 cm on the right and 4.0 cm on the left. Hemoperitoneum may be secondary to a ruptured hemorrhagic cyst in the absence of trauma. 3. The pancreas appears to be mildly enlarged. Although findings can be within normal limits, recommend correlation with amylase and lipase levels to exclude the possibility of pancreatitis. 4. No gross evidence of bowel obstruction. Stool filled loops of large bowel suggestive of constipation. No evidence of free air. RPTAT: AAPP Physician Marina Date Time Electronically viewed and signed by Physician Marina on 10/29/2018 11:28 PROCEDURE: US Pelvis. CLINICAL INDICATION: pelvic pain TECHNIQUE: Multiple sonographic images of the pelvis were obtained utilizing transabdominal and endovaginal technique. The images were reviewed on a PACS workstation. COMPARISON: None. FINDINGS: The uterus is normal in size with a normal appearance of the myometrium. The uterus measures 8.4 x 4.2 x 4.2 cm. The endometrial stripe is homogeneous in appearance and has the thickness of 14 mm. Normal venous Doppler flow is identified in both ovaries. The right ovary measures 5.1 x 4.8 x 4.2 cm. There is a 3.5 cm simple cyst. The left ovary measures 5.5 x 4.5 x 4.7 cm. There is a 4.6 cm simple cyst. There is adjacent free fluid in the left adnexa. No free fluid is present within the pelvis. There is a moderate amount of free fluid in the pelvis. RPTAT: AA IMPRESSION: Enlarged ovaries with bilateral simple cysts. Moderate amount of free fluid in the pelvis and left adnexa. .Dany Estrada MD, MD Date Time Electronically viewed and signed by .Dany Estrada MD, on 10/29/2018 10:29 Hx of Present Illness 28 yo F with no significant PMH presents for worsening abdominal pain since last night. Patient states she had a sudden onset of severe right pubic pain with associated chills. Patient denies any nausea, vomiting, chest pain, shortness of breath, vaginal bleeding, constipation, or diarrhea. She admits to stopping her BC recently. No previous history of pelvic pain. In ED CT scan abd/pelvis revealed hemoperitoneum consistent with ovarian cyst rupture with presences of cysts bilaterally. She was evaluated by Processing Lead and opted for conservative management at this time. Hospital Course Patient was evaluated by industrial paramedic and opted for conservative management. Patients was started on IVF and maintained NPO status. Patients hemoglobin was trending down and was taken for emergent surgery which resulted in bilateral cystectomies. Patient tolerated surgical intervention and was able to tolerate PO intake and had mild pain. Patients hemoglobin level remained stable following surgery and on day of discharge, vitals and physical exam were stable. Patient was discharged home in good condition. Home Meds Active Scripts Hydrocodone Bit-Acetaminophen (Hydrocodone Bit-APAP) 5-325MG Tablet, 1 TAB PO Q6H PRN for .MOD PAIN 4-6 for 7 Days, #15 TAB Prov:SANDHYA MAHARAJ MD 10/31/18 Mupirocin* (Bactroban*) 2% -22 Gram Oint...g., 1 APPLIC TOP TID, #1 TUB SITE OF APPLICATION: Prov:NATALIE PAYNE PA-C 03/03/18 Follow-up Plan 1. Follow up with your primary care physician in 1-2 weeks 2. Follow with industrial paramedic for scheduled pap smears 3. Take pain medications as needed. Keep well hydrated and increase fiber in your diet to prevent constipation 4. If experience any concerning symptoms, go to your nearest emergency department Primary Care Provider Care Physician No Primary Time spent on discharge: > 30 minutes Pending Labs Laboratory Tests Test 10/31/18 05:20 White Blood Count 10.9 10^3/ul (4.8-10.8) Red Blood Count 3.03 10^6/ul (4.20-5.40) Hemoglobin 9.0 g/dl (12.0-16.0) Hematocrit 27.1 % (37.0-47.0) Mean Corpuscular Volume 89.4 fl (82.0-101.0) Mean Corpuscular Hemoglobin 29.7 pg (29.0-33.0) Mean Corpuscular Hemoglobin Concent 33.2 g/dl (32.0-37.0) Red Cell Distribution Width 13.1 % (11.5-14.5) Platelet Count 163 10^3/UL (140-415) Mean Platelet Volume 10.0 fl (7.4-10.4) Immature Granulocytes % 0.500 % (0.001-0.429) Neutrophils % 72.8 % (39.0-77.0) Lymphocytes % 15.7 % (15.0-51.0) Monocytes % 10.6 % (0.0-11.0) Eosinophils % 0.2 % (0.0-7.0) Basophils % 0.2 % (0.0-2.0) Nucleated Red Blood Cells % 0.0 /100WBC (0.0-0.0) Immature Granulocytes # 0.050 10^3/ul (0.0-0.031) Neutrophils # 8.0 10^3/ul (1.6-7.5) Lymphocytes # 1.7 10^3/ul (0.8-2.9) Monocytes # 1.2 10^3/ul (0.3-0.9) Eosinophils # 0.0 10^3/ul (0.0-0.5) Basophils # 0.0 10^3/ul (0.0-0.1) Nucleated Red Blood Cells # 0.0 10^3/ul (0.0-0.0) SANDHYA MAHARAJ MD Oct 31, 2018 17:34
--- NOTE | 2018-11-02 18:44 | OPR ---
DATE OF OPERATION: 10/30/2018 PREOPERATIVE DIAGNOSES: 1. Hemoperitoneum. 2. Dropping hemoglobin. 3. Bilateral ovarian cysts. POSTOPERATIVE DIAGNOSES: 1. Hemoperitoneum. 2. Bilateral ovarian cysts. ATTENDING SURGEON: Buddy Celaya MD ANESTHESIOLOGIST: Fly Maldonado MD TYPE OF ANESTHESIA: General. COMPLICATIONS: None. ESTIMATED BLOOD LOSS: Minimal. TECHNIQUE: The patient was taken to the operating room where general anesthesia was found to be adeq uate. The patient was placed in dorsal lithotomy position. After prep and drape, a weighted speculu m was placed inside the vaginal vault. Anterior lip of the cervix was grasped by single-tooth tenacu lum. Cervix was dilated by Tracy dilators. HUMI was inserted. Then, attention was turned to abdomi nal field. Then, 1 cm incision was made above the umbilicus. First trocar was inserted under direct visualization of the camera. Intraabdominal cavity was filled using 4 liters of CO2. Second and th ird trocars were placed on both sides of the first trocar around 8 to 10 cm from the first one, then around a liter of clots and blood were noticed in the abdominal cavity. Intraabdominal cavity was dhillon ctioned and irrigated. Dripping of blood was noticed from the right side cyst. Ovarian cystectomy w as done on both sides using a gyrus applicator. Hemostasis was achieved. Copious irrigation of abdo imani and pelvic cavity was done. Hemostasis was achieved. Gas was removed. Trocar was removed und er direct visualization of the camera. The skin incision was closed using 3-0 Monocryl. Dermabond w as placed on top of the incision. The patient tolerated the procedure well. HUMI was removed. Fole y was removed. The patient tolerated the procedure well and was transferred to recovery room in stab le condition. There was no complication regarding this surgery. Dictated By: BUDDY CELAYA MD RG/NTS Conf#: [id number] DID#: [id number] CC: SANDHYA MAHARAJ MD;*EndCC*
== END 2018-10-31 13:00 | disposition home or self-care (01) | DRG 742 ==
LOC: FTE 08:27 → PP2 12:29
PROVIDERS: ADMIT Internal Medicine; ATTEND Internal Medicine
PROC: 30233N1 Transfusion of Nonautologous Red Blood Cells into Peripheral Vein, Percutaneous Approach (ICD-10-PCS; 2018-10-30)
PROC: 0UB24ZZ Excision of Bilateral Ovaries, Percutaneous Endoscopic Approach (ICD-10-PCS; principal; 2018-10-30 10:30)
DX: N83.202 Unspecified ovarian cyst, left side (principal); K66.1 Hemoperitoneum; N83.201 Unspecified ovarian cyst, right side; D72.829 Elevated white blood cell count, unspecified
CPT/HCPCS: 36415; 36430; 74177; 76856; 80053; 81001; 81003; 81025; 83690; 85014; 85018; 85025; 85610; 85730; 86850; 86900; 86901; 86920; 88305; 90686; 96361; 96374; 96375; J1170; J1885; J2250; J2270; J2405; J2795; J3010; J7030; J7042; P9016; Q9967